=== PATIENT | female | born 1980 | race Caucasian/White ===

== ENCOUNTER 2017-09-11 17:01 | Emergency (ER) | payer BC ==
[~2017-09-11] VITALS: Ht 170.2 cm; Wt 55.8 kg
[2017-09-11 17:13] VITALS: BP 113/73
[2017-09-11] MEDS ORDERED: QUETIAPINE FUM100 MG ORAL (17:21)
[2017-09-11] MEDS ORDERED: TRAZODONE HCL150 MG ORAL (17:21)
[2017-09-11] MEDS ORDERED: CYMBALTA60 MG ORAL (17:21)
[2017-09-11] MEDS ORDERED: SUMATRIPTAN SU100 MG PO (17:21)
[2017-09-11] MEDS ORDERED: GABAPENTIN600 MG ORAL (17:21)
[2017-09-11] MEDS ORDERED: ZOFRAN ODT4 MG ORAL (17:21)
[2017-09-11 18:49] LABS: APPEARANCE,URINE CLEAR; BASOPHILS % (AUTO) 0.5 % (0.0-2.0); EOSINOPHILS % (AUTO) 4.1 % (0.0-3.0); KETONES,URINE NEGATIVE (NEGATIVE); LEUKOCYTE ESTERASE ,URINE NEGATIVE (NEGATIVE); LYMPHOCYTES % (AUTO) 19.7 % (20.0-45.0); MEAN CORPUSCULAR HGB CONC 32.9 G/DL (32.0-36.0); MEAN CORPUSCULAR VOLUME 94 FL (80-99); MEAN PLATELET VOLUME 8.1 FL (6.5-10.1); MONOCYTES % (AUTO) 6.4 % (1.0-10.0); NEUTROPHILS % (AUTO) 69.3 % (45.0-75.0); NITRITE,URINE NEGATIVE (NEGATIVE); PH,URINE 6 (4.5-8.0); PLATELET COUNT 218 K/UL (150-450); PROTEIN,URINE NEGATIVE (NEGATIVE); RED BLOOD COUNT 4.33 M/UL (4.20-5.40); UROBILINOGEN,URINE NORMAL MG/DL (0.0-1.0); WHITE BLOOD COUNT 10.1 K/UL (4.8-10.8)
[2017-09-11 18:58] LABS: ANION GAP 6 mmol/L (5-15); CARBON DIOXIDE 31 MMOL/L (21-32); CHLORIDE 101 MMOL/L (98-107); GLOMERULAR FILTRATION RATE > 60 mL/min (>60); POTASSIUM 3.6 MMOL/L (3.5-5.1); SODIUM 138 MMOL/L (136-145)
[2017-09-11 19:02] LABS: ALANINE AMINOTRANSFERASE 30 U/L (12-78); ALBUMIN/GLOBULIN RATIO 1.1 (1.0-2.7); ASPARTATE AMINO TRANSFERASE 22 U/L (15-37); LIPASE 113 U/L (73-393); TOTAL PROTEIN 7.5 G/DL (6.4-8.2)
[2017-09-11 19:07] LABS: PROTHROMBIN TIME 10.9 SEC (9.30-11.50)
[2017-09-11 19:30] VITALS: BP 118/76
--- NOTE | 2017-09-11 21:42 | Emergency Room Report ---
History of Present Illness General Chief Complaint: General Complaint Source: Patient Present Illness [facility] The patient is a 37-year-old female presenting for abdominal pain and vomiting for the past week. She states that the vomiting usually occurs after eating. Abdominal pain described as a 5/10 dull ache to the mid upper abdomen as well as the mid lower abdomen. No known provoking or relieving factors. She denies diarrhea but does admit to intermittent constipation. Last bowel movement was yesterday and described as minimal and hard. She denies other symptoms including fever, chills, SOB Allergies: Coded Allergies: PENICILLINS (Verified Allergy, Unknown, 09/11/17) SULFA (SULFONAMIDE ANTIBIOTICS) (Verified Allergy, Unknown, 09/11/17) Patient History Past Medical History: see triage record Pertinent Family History: none Last Menstrual Period: 06/05/17. Normally irregular cycle. Now: No Reviewed Nursing Documentation: PMH: Agreed, PSxH: Agreed Nursing Documentation-PMH Past Medical History: No Stated History Review of Systems All Other Systems: negative except mentioned in HPI Physical Exam Vital Signs Date Time Temp Pulse Resp B/P (MAP) Pulse Ox O2 Delivery O2 Flow Rate FiO2 09/11/17 17:13 97.9 100 17 113/73 100 Room Air Sp02 EP Interpretation: reviewed, normal General Appearance: no apparent distress, alert, GCS 15, non-toxic Head: normocephalic, atraumatic Eyes: bilateral eye normal inspection, bilateral eye PERRL ENT: hearing grossly normal, normal pharynx, no angioedema, normal voice Respiratory: chest non-tender, lungs clear, normal breath sounds, speaking full sentences Cardiovascular #1: regular rate, rhythm, no edema Gastrointestinal: normal bowel sounds, soft, non-distended, no guarding, no rebound, tenderness - epigastric and suprapubic Musculoskeletal: back normal, gait/station normal, normal range of motion, non- tender Neurologic: alert, oriented x3, responsive, motor strength/tone normal, sensory intact, speech normal Psychiatric: judgement/insight normal, memory normal, mood/affect normal, no suicidal/homicidal ideation Skin: normal color, no rash, warm/dry, well hydrated Medical Decision Making PA Attestation is my supervising physician. Patient management was discussed with my supervising physician Diagnostic Impression: Primary Impression: Constipation Qualified Codes: K59.00 - Constipation, unspecified Additional Impression: Abdominal pain Qualified Codes: R10.9 - Unspecified abdominal pain ER Course The patient is a 37-year-old female presenting for abdominal pain and vomiting for the past week Differential diagnoses considered include but not limited to gastritis, constipation, pancreatitis, appendicitis, , UTI PE: Afebrile. NAD Abdomen is soft. Nondistended. There is tenderness to palpation over suprapubic and epigastric region. No McBurney point tenderness. No CVA tenderness CT: Moderate amount of stool in colon, suggesting constipation. No evidence of fecal impaction. Appendix is mildly dilated and contains fecal material. No substantial adjacent inflammatory changes to suggest acute appendicitis, but early appendicitis cannot definitively be excluded. Labs are unremarkable. A leukocytosis. The patient will be discharged home with prescription for MiraLAX and Colace. She will follow up with primary doctor. She will stop using her fiber supplements. The patient is currently in a rehabilitation facility and will be discharged back. Return precautions are given Laboratory Tests Test 09/11/17 18:30 White Blood Count 10.1 K/UL (4.8-10.8) Red Blood Count 4.33 M/UL (4.20-5.40) Hemoglobin 13.4 G/DL (12.0-16.0) Hematocrit 40.7 % (37.0-47.0) Mean Corpuscular Volume 94 FL (80-99) Mean Corpuscular Hemoglobin 31.0 PG (27.0-31.0) Mean Corpuscular Hemoglobin Concent 32.9 G/DL (32.0-36.0) Red Cell Distribution Width 12.0 % (11.6-14.8) Platelet Count 218 K/UL (150-450) Mean Platelet Volume 8.1 FL (6.5-10.1) Neutrophils (%) (Auto) 69.3 % (45.0-75.0) Lymphocytes (%) (Auto) 19.7 % (20.0-45.0) L Monocytes (%) (Auto) 6.4 % (1.0-10.0) Eosinophils (%) (Auto) 4.1 % (0.0-3.0) H Basophils (%) (Auto) 0.5 % (0.0-2.0) Prothrombin Time 10.9 SEC (9.30-11.50) Prothrombin Time INR 1.0 (0.9-1.1) PTT 28 SEC (23-33) Urine Color Yellow Urine Appearance Clear Urine pH 6 (4.5-8.0) Urine Specific Rogers 1.020 (1.005-1.035) Urine Protein Negative (NEGATIVE) Urine Glucose (UA) Negative (NEGATIVE) Urine Ketones Negative (NEGATIVE) Urine Occult Blood Negative (NEGATIVE) Urine Nitrite Negative (NEGATIVE) Urine Bilirubin Negative (NEGATIVE) Urine Urobilinogen Normal MG/DL (0.0-1.0) Urine Leukocyte Esterase Negative (NEGATIVE) Urine HCG, Qualitative Negative Sodium Level 138 MMOL/L (136-145) Potassium Level 3.6 MMOL/L (3.5-5.1) Chloride Level 101 MMOL/L (98-107) Carbon Dioxide Level 31 MMOL/L (21-32) Anion Gap 6 mmol/L (5-15) Blood Urea Nitrogen 18 mg/dL (7-18) Creatinine 1.0 MG/DL (0.55-1.30) Estimate Glomerular Filtration Rate > 60 mL/min (>60) Glucose Level 91 MG/DL (74-106) Calcium Level 8.0 MG/DL (8.5-10.1) L Total Bilirubin 0.5 MG/DL (0.2-1.0) Aspartate Amino Transferase (AST) 22 U/L (15-37) Alanine Aminotransferase (ALT) 30 U/L (12-78) Alkaline Phosphatase 81 U/L (46-116) Total Protein 7.5 G/DL (6.4-8.2) Albumin 3.9 G/DL (3.4-5.0) Globulin 3.6 g/dL Albumin/Globulin Ratio 1.1 (1.0-2.7) Lipase 113 U/L (73-393) Lab Results Impression unremarkable Last Vital Signs Date Time Temp Pulse Resp B/P (MAP) Pulse Ox O2 Delivery O2 Flow Rate FiO2 09/11/17 17:13 97.9 100 17 113/73 100 Room Air Status: improved Disposition: HOME, SELF-CARE Condition: Improved Scripts Docusate Sodium* (COLACE*) 100 Mg Capsule 100 MG ORAL DAILY, #10 CAP Prov: TERNIGHAT SENA P.A. 09/11/17 Polyethylene Glycol 3350 (MIRALAX) 119 Gm Powder 17 GM PO DAILY, #119 GM Prov: TERZIAN,NIGHAT P.A. 09/11/17 Referrals: NOT CHOSEN [facility]/,REFERRING (PCP) NIGHAT MONTGOMERY Sep 11, 2017 21:42
[2017-09-11] MEDS ORDERED: MIRALAX119 GM PO (21:45)
[2017-09-11] MEDS ORDERED: COLACE100 MG ORAL (21:45)
[2017-09-11 22:10] VITALS: BP 118/76
--- NOTE | 2017-09-12 13:51 | Diagnostic Imaging Report ---
Indication: Abdominal pain, nausea and vomiting Technique: CT of the abdomen and pelvis utilizing automated exposure control with intravenous contrast. Venous scanning performed. CT dose: Total DLP 445.31 mGycm; CTDI vol 8.59 mGy Comparison: None Findings: There are trace bilateral pleural effusions with adjacent dependent atelectasis. Heart size within normal limits. No pericardial effusion. Liver, gallbladder, spleen, adrenal glands and pancreas are grossly unremarkable. Kidneys enhance symmetrically. There is no urinary tract stone or hydronephrosis bilaterally. The bladder is moderately distended but otherwise unremarkable. Uterus is retroflexed. No adnexal mass noted. A large amount of stool is noted throughout the colon suggesting constipation. Appendix is prominent and contains fecal material and air. No definite periappendiceal inflammatory changes noted. No free intraperitoneal air. There is swirling of the superior mesenteric vein, clockwise around the superior mesenteric artery. These findings suggest an intestinal malrotation. No evidence to suggest associated volvulus at this time. Small amount of free pelvic fluid is noted and may be physiologic. Abdominal aorta is normal in caliber. No abdominal pelvic lymphadenopathy is noted. No acute osseous abnormality is seen. Impression: Moderate stool throughout the colon suggesting constipation. Appendix mildly dilated and contains fecal material. No definite periappendiceal inflammatory change however early appendicitis cannot entirely be excluded. Correlate clinically. Swirling of the superior mesenteric vein around the superior mesenteric artery. These findings suggest intestinal malrotation. No evidence of associated volvulus at this time. Consider confirmation with upper GI series. Trace bilateral pleural effusions with adjacent dependent atelectasis. This is slightly discrepant from the preliminary report. Findings and imaging follow-up recommendations discussed with Dr. Villa via telephone conversation approximately 13:30 on 09/12/[address] scanner at [facility] is accredited by the [employer] and the scans are performed using protocols designed to limit radiation exposure to as low as reasonably achievable to attain images of sufficient resolution adequate for diagnostic evaluation.
== END 2017-09-11 22:10 | disposition home or self-care (01) ==
LOC: EMR 18:20
DX: K59.00 Constipation, unspecified (principal); R10.9 Unspecified abdominal pain; Z88.0 Allergy status to penicillin; Z88.2 Allergy status to sulfonamides
CPT/HCPCS: 36415; 74177; 80053; 81003; 81025; 83690; 85025; 85610; 85730; 96361; 96374; 96375; 99284; J2405; Q9967; S0028

== ENCOUNTER 2017-09-18 15:15 | Emergency (ER) | payer BC ==
[~2017-09-18] VITALS: Ht 170.2 cm; Wt 54.4 kg
[~2017-09-18 15:15] MED LIST: COLACE100 MG ORAL; CYMBALTA60 MG ORAL; GABAPENTIN600 MG ORAL; MIRALAX119 GM PO; QUETIAPINE FUM100 MG ORAL; SUMATRIPTAN SU100 MG PO; TRAZODONE HCL150 MG ORAL; ZOFRAN ODT4 MG ORAL
[2017-09-18 15:59] VITALS: BP 107/75
[2017-09-18] MEDS ORDERED: FLEET ENEMA133 ML RECTAL (16:25)
[2017-09-18] MEDS ORDERED: SENNA8.8 MG/5 M PO (16:25)
[2017-09-18 16:32] VITALS: BP 116/70
--- NOTE | 2017-09-18 22:07 | Emergency Room Report ---
History of Present Illness General Chief Complaint: Constipation Source: Patient Present Illness HPI The patient is a 37-year-old female presenting for continued constipation. She was seen in this emergency department recently and diagnosed with constipation which was seen on CT scan. She was given prescription for MiraLAX and Colace but states that this has not been helping. Last bowel movement was 3 days prior and was painful. She is having abdominal pain described as 5/10 dull ache to the entire abdomen. She admits to previous opioid use. She denies other symptoms including nausea, vomiting, fever, chills, back pain, melena Allergies: Coded Allergies: PENICILLINS (Verified Allergy, Unknown, 09/11/17) SULFA (SULFONAMIDE ANTIBIOTICS) (Verified Allergy, Unknown, 09/11/17) Patient History Past Medical History: see triage record Pertinent Family History: none Last Menstrual Period: 06/05/17 Reviewed Nursing Documentation: PMH: Agreed, PSxH: Agreed Nursing Documentation-PMH Past Medical History: No Stated History Review of Systems All Other Systems: negative except mentioned in HPI Physical Exam Vital Signs Date Time Temp Pulse Resp B/P (MAP) Pulse Ox O2 Delivery O2 Flow Rate FiO2 09/18/17 15:46 97.9 94 18 107/75 100 Room Air Sp02 EP Interpretation: reviewed, normal General Appearance: no apparent distress, alert, GCS 15, non-toxic Head: normocephalic, atraumatic Eyes: bilateral eye normal inspection, bilateral eye PERRL Gastrointestinal: soft, no mass, no guarding, tenderness - minimal diffuse Genitourinary: normal inspection, no CVA tenderness Musculoskeletal: back normal, gait/station normal, normal range of motion, non- tender Neurologic: alert, oriented x3, responsive, motor strength/tone normal, sensory intact, speech normal Psychiatric: judgement/insight normal, memory normal, mood/affect normal, no suicidal/homicidal ideation Skin: normal color, no rash, warm/dry, well hydrated Medical Decision Making PA Attestation Dr. Oconnor is my supervising physician. Patient management was discussed with my supervising physician Diagnostic Impression: Primary Impression: Constipation Qualified Codes: K59.00 - Constipation, unspecified ER Course The patient is a 37-year-old female presenting for continued constipation Differential diagnoses considered but not limited to: Constipation, gastroenteritis, hemorrhoids, SBO, ulcerative colitis, Crohn disease Physical exam: Afebrile. No apparent distress Abdomen is soft. Normal bowel sounds. There is minimal diffuse tenderness to palpation. The patient had imaging and laboratory and recently. She'll be discharged home with prescription for senna and enema. ER precautions are given Last Vital Signs Date Time Temp Pulse Resp B/P (MAP) Pulse Ox O2 Delivery O2 Flow Rate FiO2 09/18/17 16:32 97.9 74 19 116/70 98 Room Air Status: improved Disposition: HOME, SELF-CARE Condition: Improved Scripts Na Phos,M-B/Na Phos,Di-Ba* (FLEET ENEMA*) 133 Ml Enema 133 ML RECTAL EVERY OTHER DAY for 2 Days, ML 0 Refills Prov: NIGHAT MONTGOMERY 09/18/17 Sennosides (SENNA) 8.8 Mg/5 Ml Syrup 10 ML PO DAILY for 7 Days, ML Prov: NIGHAT MONTGOMERY P.A. 09/18/17 Referrals: NOT CHOSEN [facility]/MD,REFERRING (PCP) Patient Instructions: Constipation, Adult Additional Instructions: I discussed my findings with the patient. All questions and concerns have been answered. Treatment and medication compliance have been addressed. I advised the patient that they need to follow up with PMD in 3-5 days. Return to ED if symptoms worsen, new symptoms arise, or if needed for any reason. Patient verbalized understanding of discharge instructions. NIGHAT MONTGOMERY Sep 18, 2017 22:07
== END 2017-09-18 16:32 | disposition home or self-care (01) ==
LOC: EMR 16:20
DX: K59.00 Constipation, unspecified (principal); Z88.0 Allergy status to penicillin; Z91.09 Other allergy status, other than to drugs and biological substances
CPT/HCPCS: 99284